=== PATIENT | female | born 1965 ===

== ENCOUNTER 2017-06-01 18:28 | Emergency (ER) | payer BC ==
--- NOTE | 2017-06-01 18:39 | UC ---
Lower Extremity/Ankle HPI - HPI Summary HPI Summary: Particle board fell and hit her right ankle, tender bruising and abrasion on ankle - History of Current Complaint Chief Complaint: UCLowerExtremity Stated Complaint: RIGHT ANKLE INJURY Time Seen by Provider: 06/01/17 18:33 Hx Obtained From: Patient ?: No Onset/Duration: Sudden Onset, Lasting Hours Severity Initially: Moderate Severity Currently: Moderate Pain Intensity: 6 Pain Scale Used: 0-10 Numeric Aggravating Factor(s): Standing, Ambulation Able to Bear Weight: Yes - Allergies/Home Medications Allergies/Adverse Reactions: Allergies Allergy/AdvReac Type Severity Reaction Status Date / Time Codeine Allergy Intermediate Headache Verified 06/01/17 18:57 Home Medications: Home Medications Ibuprofen TAB* [Advil TAB*] 200 mg PO Q6H PRN 06/01/17 [History Confirmed ] PMH/Surg Hx/FS Hx/Imm Hx Previously Healthy: No Respiratory History: Asthma - Surgical History Surgical History: None - Family History Known Family History: Positive: None - Social History Occupation: Employed Full-time Lives: With Family Alcohol Use: None Substance Use Type: None Smoking Status (MU): Never Smoked Tobacco Review of Systems Constitutional: Negative Skin: Bruising - right lateral ankle, Other - Abrasion right ankle Eyes: Negative ENT: Negative Respiratory: Negative Cardiovascular: Negative Gastrointestinal: Negative Genitourinary: Negative Motor: Negative Neurovascular: Negative Musculoskeletal: Arthralgia - right lateral ankle Neurological: Negative Psychological: Negative All Other Systems Reviewed And Are Negative: Yes Physical Exam Triage Information Reviewed: Yes Appearance: Well-Appearing, No Pain Distress, Well-Nourished Vital Signs Reviewed: Yes Eye Exam: Normal Eyes: Positive: Conjunctiva Clear ENT Exam: Normal ENT: Positive: Normal ENT inspection, Hearing grossly normal. Negative: Nasal congestion, Nasal drainage, Trismus, Muffled/hoarse voice Dental Exam: Normal Neck exam: Normal Neck: Positive: Supple, Nontender Respiratory Exam: Normal Respiratory: Positive: Chest non-tender, No respiratory distress, No accessory muscle use Cardiovascular Exam: Normal Cardiovascular: Positive: RRR, Pulses Normal, Brisk Capillary Refill Musculoskeletal Exam: Normal Musculoskeletal: Positive: Strength Intact, ROM Intact, No Edema Neurological Exam: Normal Neurological: Positive: Alert, Muscle Tone Normal Psychological Exam: Normal Psychological: Positive: Normal Response To Family Skin Exam: Normal Skin: Positive: Other - abrasion right ankle Diagnostics - Radiology No standard instances Xray Interpretation: No Acute Changes Radiology Interpretation Completed By: Radiologist Lower Extremity Course/Dx - Course Course Of Treatment: soap and water wash dressing bobby wrap, tylenol, ibuprofen recheck and follow up with pcp prn - Differential Dx/Diagnosis Differential Diagnosis/HQI/PQRI: Contusion, Fracture (Closed), Sprain, Strain Provider Diagnoses: Contusion abrasion right lateral ankle Discharge - Discharge Plan Condition: Stable Disposition: HOME Patient Education Materials: Ibuprofen (By mouth), Contusion in Adults (ED), Abrasion (ED) Referrals: Jhonny Acosta DO [Primary Care Provider] - If Needed
--- NOTE | 2017-06-01 19:00 | RAD ---
HISTORY: Right ankle injury COMPARISONS: None VIEWS: 3, Frontal, lateral, and oblique views of the right ankle FINDINGS: BONE DENSITY: Normal. BONES: There is no displaced fracture. JOINTS: There is no arthropathy. ALIGNMENT: There is no dislocation. SOFT TISSUES: Unremarkable. OTHER FINDINGS: None. IMPRESSION: NO ACUTE OSSEOUS INJURY. IF SYMPTOMS PERSIST, RECOMMEND REPEAT IMAGING.
[2017-06-01 19:05] VITALS: BP 110/63
== END 2017-06-01 19:42 | disposition home or self-care (01) ==
LOC: UCCORT 18:28
DX: S90.511A Abrasion, right ankle, initial encounter (principal); S90.01XA Contusion of right ankle, initial encounter; J45.909 Unspecified asthma, uncomplicated; Z88.5 Allergy status to narcotic agent; W20.8XXA Other cause of strike by thrown, projected or falling object, initial encounter
CPT/HCPCS: 99202; G0463

== ENCOUNTER 2018-10-21 15:32 | Emergency (ER) | payer BC ==
[2018-10-21 16:03] VITALS: BP 132/77
--- NOTE | 2018-10-21 16:30 | UC ---
Lower Extremity/Ankle HPI - HPI Summary HPI Summary: 53-year-old woman comes in to clinic today with a chief complaint of left foot pain. Started a little more than a week ago after running a 6 mile RACE. The pain is primarily on the dorsum of the foot the lateral aspect along the midfoot close to the proximal fifth metatarsal. Pain is worse with ambulation and better with rest and elevation. She is able to weight-bear but with pain. - History of Current Complaint Chief Complaint: UCLowerExtremity Stated Complaint: LEFT HEEL CONCERN Time Seen by Provider: 10/21/18 16:04 Hx Last Menstrual Period: 05/25/17 Pain Intensity: 2 - Allergies/Home Medications Allergies/Adverse Reactions: Allergies Allergy/AdvReac Type Severity Reaction Status Date / Time codeine Allergy Headache Verified 10/21/18 15:57 PMH/Surg Hx/FS Hx/Imm Hx Previously Healthy: Yes - Surgical History Surgical History: None - Family History Known Family History: Positive: None Negative: Diabetes - Social History Alcohol Use: Occasionally Substance Use Type: None Smoking Status (MU): Never Smoked Tobacco - Immunization History Most Recent Tetanus Shot: UTD Review of Systems All Other Systems Reviewed And Are Negative: Yes Constitutional: Positive: Negative Skin: Positive: Negative Eyes: Positive: Negative ENT: Positive: Negative Respiratory: Positive: Negative Cardiovascular: Positive: Negative Gastrointestinal: Positive: Negative Motor: Positive: Negative Neurovascular: Positive: Negative Musculoskeletal: Positive: Other: - SEE HPI Neurological: Positive: Negative Psychological: Positive: Negative Is Patient Immunocompromised?: No Physical Exam Triage Information Reviewed: Yes Appearance: Well-Appearing, No Pain Distress, Well-Nourished Vital Signs: Initial Vital Signs Temp 98.7 F 10/21/18 15:57 Pulse 65 10/21/18 15:57 Resp 16 10/21/18 15:57 BP 132/77 10/21/18 15:57 Pulse Ox 100 10/21/18 15:57 Vital Signs Reviewed: Yes Eyes: Positive: Conjunctiva Clear Neck: Positive: Supple Respiratory: Positive: No respiratory distress Musculoskeletal: Positive: Other: - On left foot examination the ankle is nontender to palpation. Normal pulses normal capillary refill no sensation deficit. There is some tenderness to palpation on the plantar aspects of the mid foot primarily laterally. The Achilles tendon is intact and nontender. No skin break. Neurological Exam: Normal Neurological: Positive: Alert, Muscle Tone Normal Psychological: Positive: Age Appropriate Behavior Skin Exam: Normal Lower Extremity Course/Dx - Course Course Of Treatment: Order Information: FOOT LEFT 3+ VWS. Accession Number: [id number]. CPT: 60282. HISTORY: pain lateral mid foot,is a runner. COMPARISONS: None. VIEWS: 3 , Frontal, lateral, and oblique views of the left foot. FINDINGS: BONE DENSITY: Normal. BONES: There is no displaced fracture. There is a small plantar calcaneal enthesophyte. There is no appreciable erosion or periosteal reaction. JOINTS: There is no arthropathy. ALIGNMENT: There is no dislocation. SOFT TISSUES: Unremarkable. OTHER FINDINGS: None. IMPRESSION: NO ACUTE OSSEOUS INJURY. IF SYMPTOMS PERSIST, RECOMMEND REPEAT IMAGING. . < Electronically signed by Candelario Arceo MD in [place]> 10/21/18 1632. I discussed the x-ray results with the patient. At this time we will treat with arch supports eyes anti-inflammatories and rest as best possible. Patient declined crutches. Follow-up with sports medicine if not completely improved. - Differential Dx/Diagnosis Provider Diagnoses: LEFT FOOT SPRAIN. LEFT PLANTAR FASCIITIS Discharge - Sign-Out/Discharge Documenting (check all that apply): Patient Departure All imaging exams completed and their final reports reviewed: Yes - Discharge Plan Condition: Stable Disposition: HOME Patient Education Materials: Foot Sprain (ED), Plantar Fasciitis (ED), Plantar Fasciitis Exercises (GEN) Referrals: Jhonny Acosta DO [Primary Care Provider] - Noel Cassidy MD [Medical Doctor] - Marixa Hayes MD [Medical Doctor] - Additional Instructions: FOLLOW UP WITH SPORTS MEDICINE IF NOT COMPLETELY IMPROVED. GET RECHECKED FOR ANY WORSENING OF YOUR CONDITION OR QUESTIONS OR CONCERNS. - Billing Disposition and Condition Condition: STABLE Disposition: Home
== END 2018-10-21 17:07 | disposition home or self-care (01) ==
LOC: UCCORT 15:32
DX: S93.602A Unspecified sprain of left foot, initial encounter (principal); M72.2 Plantar fascial fibromatosis; Z88.5 Allergy status to narcotic agent; X58.XXXA Exposure to other specified factors, initial encounter; Y93.02 Activity, running; Y92.9 Unspecified place or not applicable
CPT/HCPCS: 99211; G0463